=== PATIENT | female | born 1995 | race Caucasian/White ===

== ENCOUNTER 2017-03-28 21:19 | Emergency (ER) | payer OTHER ==
[2017-03-28 21:39] VITALS: BP 107/59
--- NOTE | 2017-03-28 22:37 | UC ---
Skin Complaint HPI - HPI Summary HPI Summary: 22 yo female with rash x 3 weeks request elimite also requests HCG - History of Current Complaint Chief Complaint: UCSkin Time Seen by Provider: 03/28/17 22:10 Stated Complaint: TREATMENT FOR SCABIES Hx Obtained From: Patient Hx Last Menstrual Period: 03/14/17 Onset/Duration: Gradual Onset, Lasting Weeks Timing: Constant Onset Severity: Mild Current Severity: Mild Pain Intensity: 0 Pain Scale Used: 0-10 Numeric Location: Diffuse Character: Pruritus Aggravating: Nothing Alleviating: Nothing Associated Signs & Symptoms: Positive: Rash - Allergy/Home Medications Allergies/Adverse Reactions: Allergies Allergy/AdvReac Type Severity Reaction Status Date / Time No Known Allergies Allergy Verified 03/28/17 21:38 Home Medications: Home Medications ALPRAZolam TAB* [Xanax TAB*] 0.5 - 1 mg PO PRN 03/28/17 [History] Review of Systems Constitutional: Negative Skin: Rash Eyes: Negative ENT: Negative Respiratory: Negative Cardiovascular: Negative Gastrointestinal: Negative Genitourinary: Negative Motor: Negative Neurovascular: Negative Musculoskeletal: Negative Neurological: Negative Psychological: Negative All Other Systems Reviewed And Are Negative: Yes PMH/Surg Hx/FS Hx/Imm Hx Previously Healthy: Yes - Surgical History Surgical History: None - Family History Known Family History: Positive: Hypertension, Diabetes - Social History Alcohol Use: Occasionally Alcohol Amount: 5 DRINKS/WEEK Substance Use Type: Marijuana Substance Use Comment - Amount & Last Used: OCCASIONALLY Smoking Status (MU): Never Smoked Tobacco Physical Exam Triage Information Reviewed: Yes Appearance: Well-Appearing, No Pain Distress Vital Signs: Initial Vital Signs Temp 97.9 F 03/28/17 21:34 Pulse 81 03/28/17 21:34 Resp 16 03/28/17 21:34 BP 107/59 03/28/17 21:34 Pulse Ox 99 03/28/17 21:34 Eyes: Positive: Conjunctiva Clear ENT: Positive: Hearing grossly normal. Negative: Nasal congestion, Nasal drainage, Trismus Neck: Positive: Supple, No Lymphadenopathy Respiratory: Positive: Lungs clear, Normal breath sounds Cardiovascular: Positive: RRR, No Murmur Musculoskeletal Exam: Normal Neurological: Positive: Alert Psychological Exam: Normal Skin Exam: Other - scabs/papules/burrows Course/Dx - Diagnoses Provider Diagnoses: scabies Discharge - Discharge Plan Condition: Stable Disposition: HOME Prescriptions: Permethrin [Elimite] 5 % EX WEEKLY #60 cre Patient Education Materials: Scabies (ED) Referrals: No Primary Care Phys,NOPCP [Primary Care Provider] -
== END 2017-03-28 22:45 | disposition home or self-care (01) ==
LOC: UCEAST 21:19
DX: B86 Scabies (principal)
CPT/HCPCS: 84702; 99212; G0463